=== PATIENT | male | born 1950 | race Caucasian/White ===

== ENCOUNTER 2017-09-05 21:55 | Observation (INO) | payer MEDICARE, OTHER ==
[~2017-09-05] VITALS: Ht 180.3 cm; Wt 73.2 kg
[2017-09-05] MEDS ORDERED: ASPIRIN 81 MG CHEW (CHILDREN'S ASA) PO ONE (22:15)
[2017-09-05 22:16] LABS: BASOPHILS % (AUTO) 0 % (0-10); EOSINOPHILS # (AUTO) 0.1 10^3/uL (0.0-0.3); EOSINOPHILS % (AUTO) 1 % (0-10); HEMATOCRIT 42 % (40-54); HEMOGLOBIN 14.9 G/DL (13.3-17.7); LYMPHOCYTES # (AUTO) 1.4 X 10^3 (1.0-4.0); LYMPHOCYTES % (AUTO) 19 % (12-44); MEAN CORPUSCULAR HEMOGLOBIN 28 PG (25-34); MEAN CORPUSCULAR HGB CONC 36 G/DL (32-36); MEAN CORPUSCULAR VOLUME 78 FL (80-99); MEAN PLATELET VOLUME 9.5 FL (7.4-10.4); MONOCYTES % (AUTO) 13 % (0-12); NEUTROPHILS # (AUTO) 4.9 X 10^3 (1.8-7.8); NEUTROPHILS % (AUTO) 67 % (42-75); PLATELET COUNT 194 10^3/uL (130-400); RED BLOOD COUNT 5.34 10^6/uL (4.35-5.85); RED CELL DISTRIBUTION WIDTH 13.3 % (10.0-14.5); WHITE BLOOD COUNT 7.3 10^3/uL (4.3-11.0)
[2017-09-05 22:29] LABS: PROTHROMBIN TIME PATIENT 13.3 SEC (12.2-14.7)
[2017-09-05 22:35] LABS: ALANINE AMINOTRANSFERASE 15 U/L (0-55); ALBUMIN 4.5 GM/DL (3.2-4.5); ALKALINE PHOSPHATASE 71 U/L (40-136); AMYLASE 127 U/L (25-125); BILIRUBIN,TOTAL 0.6 MG/DL (0.1-1.0); BUN/CREATININE RATIO 13; CALCIUM 9.5 MG/DL (8.5-10.1); CARBON DIOXIDE 26 MMOL/L (21-32); CHLORIDE 108 MMOL/L (98-107); CREATINE KINASE 128 U/L (30-200); CREATININE SERUM 1.09 MG/DL (0.60-1.30); GFR ESTIMATED > 60; GLUCOSE 115 MG/DL (70-105); LIPASE 63 U/L (8-78); POTASSIUM 3.7 MMOL/L (3.6-5.0); SODIUM 143 MMOL/L (135-145)
[2017-09-05 22:41] LABS: CREATINE KINASE MB 1.3 NG/ML (<6.6)
[2017-09-06] VITALS (12 sets, daily range): BP systolic 134–178; BP diastolic 68–89
[2017-09-06] MEDS ORDERED: morphine INJ 4 MG/ML 1 ML (VIAL/SYRINGE) IV PRN (01:30)
[2017-09-06] MEDS ORDERED: meTOprolol 5 MG/5 ML (LOPRESSOR) VIAL IV PRN (01:30)
[2017-09-06] MEDS ORDERED: NITROGLYCERIN 0.4 MG SL TABS BTL 25'S SL PRN (01:30)
--- NOTE | 2017-09-06 04:19 | ED Chest Pain ---
General Chief Complaint: Chest Pain Stated Complaint: CHEST PAIN, HTN Nursing Triage Note: C/O cp while watching grandkids play soccer. States it was a squeezing pain over left breast with sob. lasted apporx 30 min 6/10. 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 NO HISTORY OF SIMILAR PT USED TO SEE DR. AVERY, BUT HAS NOT SEEN A DR IN OVER 30 YEARS Allergies and Home Medications Allergies Coded Allergies: No Known Drug Allergies (Unverified , 09/05/17) Home Medications No Active Prescriptions or Reported Meds Patient Home Medication List Home Medication List Reviewed: Yes Review of Systems Constitutional: no symptoms reported; No dizziness EENTM: No Symptoms Reported Respiratory: See HPI; Denies Cough; Shortness of Air, SOA With Exertion, SOA at Rest; Denies Wheezing Cardiovascular: See HPI, Chest Pain; Denies Edema, Denies Irregular Heart Rate , Denies Lightheadedness, Denies Palpitations, Denies Syncope Gastrointestinal: No Symptoms Reported; Denies Abdominal Pain, Denies Nausea, Denies Vomiting Genitourinary: No Symptoms Reported Musculoskeletal: no symptoms reported; No back pain Skin: no symptoms reported Psychiatric/Neurological: See HPI, Tingling Endocrine: No Symptoms Reported Hematologic/Lymphatic: No Symptoms Reported Past Ialeybn-Zbiywy-Prhsor Hx Patient Social History Alcohol Use: Past History (DRANK WHEN YOUNGER, BUT NOT FOR MANY YEARS) Recreational Drug Use: No Smoking Status: Never a Smoker 2nd Hand Smoke Exposure: No Recent Foreign Travel: No Contact w/Someone Who Travel: No Recent Infectious Disease Expo: No Recent Hopitalizations: No Physical Abuse: No Sexual Abuse: No Mistreated: No Fear: No Immunizations Up To Date Tetanus Booster (TDap): Unknown Seasonal Allergies Seasonal Allergies: No Past Medical History Surgeries: No Respiratory: No Cardiac: No Neurological: No Genitourinary: No Gastrointestinal: No (SPASTIC COLON) Musculoskeletal: No Endocrine: No HEENT: No Cancer: No Psychosocial: No Nursing Suicide Risk Score: 0 Integumentary: No Blood Disorders: No Family Medical History Cervical cancer G8 SISTER Colon cancer 19 FATHER FH: CAD (coronary artery disease) G8 BROTHER FH: uterine cancer G8 SISTER Physical Exam Vital Signs Vital Signs - First Documented 09/05/17 21:55 Pulse 64 Resp 18 B/P (MAP) 189/90 (123) Pulse Ox 96 O2 Delivery Nasal Cannula O2 Flow Rate 2.0 Capillary Refill : Less Than 3 Seconds General Appearance: No Apparent Distress, WD/WN HEENT: PERRL/EOMI Neck: Full Range of Motion, Normal Inspection, Non Tender, Supple; No Carotid Bruit, No JVD Respiratory: Chest Non Tender, Normal Breath Sounds, No Accessory Muscle Use, No Respiratory Distress Cardiovascular: Regular Rate, Rhythm, No Edema, No Gallop, No JVD, No Murmur, Normal Peripheral Pulses Gastrointestinal: Normal Bowel Sounds, No Organomegaly, No Pulsatile Mass, Non Tender, Soft Extremity: Normal Capillary Refill, Normal Inspection, Normal Range of Motion, Non Tender, No Calf Tenderness, No Pedal Edema Neurologic/Psychiatric: Alert, Oriented x3, No Motor/Sensory Deficits, Normal Mood/Affect, motor and generator brush cutter II-XII Norm as Tested Skin: Normal Color, Warm/Dry; No Rash Progress/Results/Core Measures Lab Results Laboratory Tests Test 09/05/17 22:00 Range/Units White Blood Count 7.3 4.3-11.0 10^3/uL Red Blood Count 5.34 4.35-5.85 10^6/uL Hemoglobin 14.9 13.3-17.7 G/DL Hematocrit 42 40-54 % Mean Corpuscular Volume 78 L 80-99 FL Mean Corpuscular Hemoglobin 28 25-34 PG Mean Corpuscular Hemoglobin Concent 36 32-36 G/DL Red Cell Distribution Width 13.3 10.0-14.5 % Platelet Count 194 130-400 10^3/uL Mean Platelet Volume 9.5 7.4-10.4 FL Neutrophils (%) (Auto) 67 42-75 % Lymphocytes (%) (Auto) 19 12-44 % Monocytes (%) (Auto) 13 H 0-12 % Eosinophils (%) (Auto) 1 0-10 % Basophils (%) (Auto) 0 0-10 % Neutrophils # (Auto) 4.9 1.8-7.8 X 10^3 Lymphocytes # (Auto) 1.4 1.0-4.0 X 10^3 Monocytes # (Auto) 1.0 0.0-1.0 X 10^3 Eosinophils # (Auto) 0.1 0.0-0.3 10^3/uL Basophils # (Auto) 0.0 0.0-0.1 10^3/uL Prothrombin Time 13.3 12.2-14.7 SEC INR Comment 1.0 0.8-1.4 Activated Partial Thromboplast Time 32 24-35 SEC Sodium Level 143 135-145 MMOL/L Potassium Level 3.7 3.6-5.0 MMOL/L Chloride Level 108 H 98-107 MMOL/L Carbon Dioxide Level 26 21-32 MMOL/L Anion Gap 9 5-14 MMOL/L Blood Urea Nitrogen 14 7-18 MG/DL Creatinine 1.09 0.60-1.30 MG/DL Estimat Glomerular Filtration Rate > 60 BUN/Creatinine Ratio 13 Glucose Level 115 H 70-105 MG/DL Calcium Level 9.5 8.5-10.1 MG/DL Total Bilirubin 0.6 0.1-1.0 MG/DL Aspartate Amino Transf (AST/SGOT) 20 5-34 U/L Alanine Aminotransferase (ALT/SGPT) 15 0-55 U/L Alkaline Phosphatase 71 40-136 U/L Total Creatine Kinase 128 30-200 U/L Creatine Kinase MB 1.3 <6.6 NG/ML Troponin I < 0.30 <0.30 NG/ML B-Type Natriuretic Peptide 54.2 <100.0 PG/ML Total Protein 7.0 6.4-8.2 GM/DL Albumin 4.5 3.2-4.5 GM/DL Amylase Level 127 H 25-125 U/L Lipase 63 8-78 U/L My Orders Orders - MARILY GOMEZ DO Amylase (09/05/17 22:10) Cbc With Automated Diff (09/05/17 22:10) Comprehensive Metabolic Panel (09/05/17 22:10) Creatine Kinase (09/05/17 22:10) Creatine Kinase Mb (09/05/17 22:10) Lipase (09/05/17 22:10) Partial Thromboplastin Time (09/05/17 22:10) Protime With Inr (09/05/17 22:10) Troponin I (09/05/17 22:10) Chest 1 View, Ap/Pa Only (09/05/17 22:10) O2 (09/05/17 22:10) Ekg Tracing (09/05/17 22:10) Aspirin Chewable Tablet (Baby Aspirin Ch (09/05/17 22:15) BNP (09/05/17 22:10) Monitor-Rhythm Ecg Trace Only (09/05/17 22:10) Medications Given in ED Current Medications Medications Dose Ordered Sig/Kary Route Start Time Stop Time Status Last Admin Dose Admin Aspirin 324 mg ONCE ONCE PO 09/05/17 22:15 09/05/17 22:16 DC 09/05/17 22:16 324 MG Vital Signs/I&O 09/05/17 09/05/17 09/05/17 21:55 21:55 22:30 Pulse 64 Resp 18 B/P (MAP) 189/90 (123) Pulse Ox 96 98 O2 Delivery Nasal Cannula Nasal Cannula O2 Flow Rate 2.0 2.0 2.00 Blood Pressure Mean: 118 Progress Note : Progress Note NO CHEST PAIN OR SYMPTOMS OF ANY KIND DURING ER STAY Initial ECG Impression Date: Sep 05, 2017 Initial ECG Impression Time: 22:04 Initial ECG Rate: 62 Initial ECG Rhythm: Normal Sinus Initial ECG Comparisson: No Previous ECG Available Comments CXR--NO ACUTE PROCESS, PENDING RADIOLOGIST REVIEW Reviewed: Reviewed by Me Departure Communication (Admissions) [id number]--SPOKE WITH DR. FINNEY, ACCEPTS PT FOR ADMIT. WILL CONSULT CARDIOLOGY. Impression Primary Impression: Chest pain Additional Impression: HTN (hypertension) Disposition: 09 ADMITTED INPATIENT Condition: Stable Admissions Decision to Admit Reason: Admit from ER (General) Decision to Admit/Date: Sep 05, 2017 Time/Decision to Admit Time: 23:15 Departure-Patient Inst. Referrals: NO,LOCAL PHYSICIAN (PCP/Family) Primary Care Physician Scripts No Active Prescriptions or Reported Meds MARILY GOMEZ DO Sep 06, 2017 04:19
[2017-09-06 04:21] LABS: BASOPHILS % (AUTO) 0 % (0-10); EOSINOPHILS # (AUTO) 0.1 10^3/uL (0.0-0.3); EOSINOPHILS % (AUTO) 1 % (0-10); HEMATOCRIT 42 % (40-54); HEMOGLOBIN 14.4 G/DL (13.3-17.7); LYMPHOCYTES # (AUTO) 1.4 X 10^3 (1.0-4.0); LYMPHOCYTES % (AUTO) 20 % (12-44); MEAN CORPUSCULAR HEMOGLOBIN 28 PG (25-34); MEAN CORPUSCULAR HGB CONC 34 G/DL (32-36); MEAN CORPUSCULAR VOLUME 81 FL (80-99); MEAN PLATELET VOLUME 10.1 FL (7.4-10.4); MONOCYTES % (AUTO) 13 % (0-12); NEUTROPHILS # (AUTO) 4.6 X 10^3 (1.8-7.8); NEUTROPHILS % (AUTO) 65 % (42-75); PLATELET COUNT 203 10^3/uL (130-400); RED CELL DISTRIBUTION WIDTH 13.4 % (10.0-14.5); WHITE BLOOD COUNT 7.1 10^3/uL (4.3-11.0)
[2017-09-06 05:09] LABS: ALANINE AMINOTRANSFERASE 14 U/L (0-55); ALBUMIN 4.3 GM/DL (3.2-4.5); ALKALINE PHOSPHATASE 65 U/L (40-136); BILIRUBIN,TOTAL 0.7 MG/DL (0.1-1.0); BUN/CREATININE RATIO 13; CALCIUM 9.4 MG/DL (8.5-10.1); CARBON DIOXIDE 26 MMOL/L (21-32); CHLORIDE 109 MMOL/L (98-107); CREATININE SERUM 0.99 MG/DL (0.60-1.30); GFR ESTIMATED > 60; GLUCOSE 94 MG/DL (70-105); POTASSIUM 3.8 MMOL/L (3.6-5.0); SODIUM 144 MMOL/L (135-145); TOTAL PROTEIN 6.6 GM/DL (6.4-8.2)
[2017-09-06 05:17] LABS: MYOGLOBIN SERUM 48.2 NG/ML (10.0-92.0)
--- NOTE | 2017-09-06 07:08 | Diagnostic Imaging Report ---
INDICATION: Chest pain. TECHNIQUE: Single view chest 10:30 PM. CORRELATION STUDY: None FINDINGS: The heart size, mediastinal configuration and pulmonary vascularity are within normal limits. The lungs are clear with no consolidating infiltrate. There is no significant effusion or pneumothorax. IMPRESSION: 1. Negative portable chest. Dictated by: Dictated on workstation # [id number]
[2017-09-06] MEDS ORDERED: ASPIRIN E.C. 325 MG (ECOTRIN) TABLET PO SCH (09:00)
--- NOTE | 2017-09-06 09:19 | Consultation-Cardiology ---
HPI-Cardiology Cardiology Consultation: Date of Consultation 09/06/17 Date of Admission Attending Physician Angeline Matt DO Admitting Physician Leann,Local Physician Consulting Physician Elham ARAGON MD HPI: Time Seen by Provider: 09:19 Chief Complaint: Chest pain This is a 67-year-old patient who presents with chest pain for 30 minutes. Chest pain intensity is 6/10. No radiation. No exacerbating or relieving factors. Mild associated shortness of breath. No other symptoms associated. Substernal. Review of Systems-Cardiology Review of Systems Constitutional: As described under HPI; No As described under HPI, No no symptoms reported, No chills, No fever, No lightheadedness Eyes: No As described under HPI, No no symptoms reported, No blindness, No blurred vision, No contact lenses, No drainage, No decreased acuity, No foreign body sensation, No pain, No vision change Ears/Nose/Throat: No As described under HPI, No no symptoms reported, No chronic hearing loss, No ear discharge, No ear pain, No nasal drainage, No ulcerations Respiratory: No no symptoms reported; As described under HPI; No As described under HPI, No cough, No orthopnea, No shortness of breath, No SOB with excertion Cardiovascular: No no symptoms reported; As described under HPI; No As described under HPI; chest pain; No edema, No irregular heart rate, No lightheadedness, No palpitations Gastrointestinal: No no symptoms reported, No As described under HPI, No abdomen distended, No abdominal pain, No blood streaked bowels, No constipation , No diarrhea, No nausea, No vomiting, No stool coloration changes Genitourinary: No As described under HPI, No burning, No dysuria, No discharge , No frequency, No flank pain, No hematuria, No urgency Skin: No rash, No skin related problems, No ulcerations Psychiatric/Neurological: No anxiety, No depression, No seizure, No focal weakness, No syncope Hematologic: No bleeding abnormalities CUC-Vtjfoe-Ttkkya Hx Patient Social History Alcohol Use: Past History (DRANK WHEN YOUNGER, BUT NOT FOR MANY YEARS) Recreational Drug Use: No Smoking Status: Never a Smoker 2nd Hand Smoke Exposure: No Recent Foreign Travel: No Recent Infectious Disease Expo: No Physical Abuse Screen: No Sexual Abuse: No Immunizations Up To Date Tetanus Booster (TDap): Unknown Past Medical History PMH As described under Assessment. Family Medical History Family History: Cervical cancer G8 SISTER Colon cancer 19 FATHER FH: CAD (coronary artery disease) G8 BROTHER FH: uterine cancer G8 SISTER Allergies and Home Medications Allergies Coded Allergies: No Known Drug Allergies (Unverified , 09/05/17) Home Medications Amlodipine Besylate 5 Mg Tablet, 5 MG PO DAILY Prescribed by: JULIA CALIXTO on 09/06/17 1159 Aspirin 81 Mg Tablet.dr, 81 MG PO DAILY Prescribed by: JULIA CALIXTO on 09/06/17 1202 Calcium Carbonate 300 Mg Tab.chew, 300 MG PO TID PRN for INDIGESTION, (Reported) Multivit-Min/FA/Lycopene/Lut 1 Each Tablet, 1 TAB PO DAILY, (Reported) Patient Home Medication List Home Medication List Reviewed: Yes Physical Exam-Cardiology Physical Exam Vital Signs/I&O 09/06/17 09/06/17 09/06/17 09/06/17 03:00 04:00 04:00 07:00 Temp 97.5 Pulse 53 52 54 B/P (MAP) 178/88 (118) 169/82 (111) Pulse Ox 97 O2 Delivery Room Air 09/06/17 09/06/17 07:58 08:00 Temp 97.6 Pulse 53 Resp 16 B/P (MAP) 156/68 (97) Pulse Ox 94 O2 Delivery Room Air Room Air Capillary Refill : Less Than 3 Seconds Constitutional: appears stated age; No apparent distress; well-developed, well- nourished HEENT: PERRL; No discharge; hearing is well preserved, oral hygience is good; No ulceration, No xanthelasmas are seen Neck: No carotid bruit; carotid pulses are 2 + bilaterally Respiratory: No accessory muscle use, No respiratory distress, No chest tender , No chest expansion is symmetric, No chest is bilaterally symmetric, No lungs clear to percussion, No lungs clear to auscultation, No crackles, No rhonchi, No rales, No stridor, No wheezing, No pleural rub, No other Cardiovascular: No regular rate-rhythm, No irregularly irregular, No extra beats, No parasternal heave is noted, No JVD, No edema, No bradycardia, No tachycardia, No point of maximal impulse, No cardiac thrills are palpable, No S1 and S2, No gallop/S3, No gallop/S4, No diastolic murmur, No systolic murmur, No friction rub, No click, No other Gastrointestinal: No tender, No soft, No round, No distended, No pulsatile mass , No organomegaly, No guarding, No rebound, No tenderness, No hernia, No mass, No audible bowel sounds, No abnormal bowel sounds, No abdominal bruits, No spleenomegaly, No other Rectal: deferred Extremities: No normal range of motion, No non-tender, No normal inspection, No pedal edema, No calf tenderness, No normal capillary refill, No pelvis stable , No calf tenderness, No inflammation, No pedal edema, No slow capillary refill , No swelling, No other, No abrasion, No clubbing, No cyanosis, No ecchymosis, No laceration, No no lower extremity edema bilateral, No significant edema, No tenderness, No wound Neurologic/Psychiatric: alert, normal mood/affect, oriented x 3, power is 5/5 both on sides Skin: No normal color, No warm/dry, No cyanosis, No cool, No diaphoresis, No damp, No ecchymosis, No jaundice, No mottled, No pallor, No rash, No tattoos/ piercings, No ulcerations, No rash on exposed areas, No ulcerations on exposed areas, No other Data Review Labs Laboratory Tests 09/05/17 22:00: White Blood Count 7.3, Red Blood Count 5.34, Hemoglobin 14.9, Hematocrit 42, Mean Corpuscular Volume 78L, Mean Corpuscular Hemoglobin 28, Mean Corpuscular Hemoglobin Concent 36, Red Cell Distribution Width 13.3, Platelet Count 194, Mean Platelet Volume 9.5, Neutrophils (%) (Auto) 67, Lymphocytes (%) (Auto) 19, Monocytes (%) (Auto) 13H, Eosinophils (%) (Auto) 1, Basophils (%) (Auto) 0, Neutrophils # (Auto) 4.9, Lymphocytes # (Auto) 1.4, Monocytes # (Auto) 1.0, Eosinophils # (Auto) 0.1, Basophils # (Auto) 0.0, Prothrombin Time 13.3, INR Comment 1.0, Activated Partial Thromboplast Time 32, Sodium Level 143, Potassium Level 3.7, Chloride Level 108H, Carbon Dioxide Level 26, Anion Gap 9, Blood Urea Nitrogen 14, Creatinine 1.09, Estimat Glomerular Filtration Rate > 60 , BUN/Creatinine Ratio 13, Glucose Level 115H, Calcium Level 9.5, Total Bilirubin 0.6, Aspartate Amino Transf (AST/SGOT) 20, Alanine Aminotransferase ( ALT/SGPT) 15, Alkaline Phosphatase 71, Total Creatine Kinase 128, Creatine Kinase MB 1.3, Troponin I < 0.30, B-Type Natriuretic Peptide 54.2, Total Protein 7.0, Albumin 4.5, Amylase Level 127H, Lipase 63 09/06/17 03:25: White Blood Count 7.1, Red Blood Count 5.20, Hemoglobin 14.4, Hematocrit 42, Mean Corpuscular Volume 81, Mean Corpuscular Hemoglobin 28, Mean Corpuscular Hemoglobin Concent 34, Red Cell Distribution Width 13.4, Platelet Count 203, Mean Platelet Volume 10.1, Neutrophils (%) (Auto) 65, Lymphocytes (%) (Auto) 20 , Monocytes (%) (Auto) 13H, Eosinophils (%) (Auto) 1, Basophils (%) (Auto) 0, Neutrophils # (Auto) 4.6, Lymphocytes # (Auto) 1.4, Monocytes # (Auto) 1.0, Eosinophils # (Auto) 0.1, Basophils # (Auto) 0.0, Sodium Level 144, Potassium Level 3.8, Chloride Level 109H, Carbon Dioxide Level 26, Anion Gap 9, Blood Urea Nitrogen 13, Creatinine 0.99, Estimat Glomerular Filtration Rate > 60, BUN/ Creatinine Ratio 13, Glucose Level 94, Calcium Level 9.4, Total Bilirubin 0.7, Aspartate Amino Transf (AST/SGOT) 21, Alanine Aminotransferase (ALT/SGPT) 14, Alkaline Phosphatase 65, Troponin I < 0.30, Total Protein 6.6, Albumin 4.3, Myoglobin 48.2 09/06/17 10:04: Troponin I < 0.30 ECG Impression ECG Initial ECG Rhythm: Normal Sinus A/P-Cardiology Assessment/Admission Diagnosis Chest pain, hypertension Plan Chest pain: Rule out acute coronary syndrome with serial troponins. EKG negative. Pharmacological nuclear stress test is recommended. Will also get an echocardiogram. Continue aspirin. Hypertension: Continue amlodipine. Thank you for your consultation. Please call me if you have any questions. Sue Aragon MD, FACP, FACC, FSCAI, FHRS, CCDS Interventional Cardiology Cardiac Electrophysiology Vascular Medicine and Endovascular Interventions Clinical Quality Measures AMI/AHF: ASA po Prior to arrival: No DVT/VTE Risk/Contraindication: Risk Factor Score Per Nursin RFS Level Per Nursing on Admit: 2=Moderate Elham ARAGON MD Sep 06, 2017 9:19 am
[2017-09-06] MEDS ORDERED: MULT-1029 PO (09:49)
[2017-09-06] MEDS ORDERED: CALC300T4 PO (09:49)
--- NOTE | 2017-09-06 11:53 | Short Stay Summary-Hospitalist ---
History of Present Illness HPI/Chief Complaint Pt is a 67yoCM with no known past medical history who presented to the ER with CC of chest pain. He was standing at his [employer] soccer game and not exerting himself when he developed chest tightness over his heart. He has never had similar symptoms so he he decided to seek evaluation in the ER. He denied any radiation of pain but it was all left sided. He denies any pain or SOB today. He otherwise has no complaints. He is a nonsmoker. He was mowing the other day and thought he pulled a muscle from that though. Source: patient Exam Limitations: no limitations Date Seen 09/06/17 Time Seen by Provider: 08:15 Attending Physician Angeline Matt DO PCP No,Local Physician Referring Physician Date of Admission Sep 05, 2017 at 11:15 pm Home Medications & Allergies Home Medications Reviewed patient Home Medication Reconciliation performed by pharmacy medication reconciliations filter changing technician and/or nursing. Patients Allergies have been reviewed. Allergies Allergies Coded Allergies No Known Drug Allergies (Unverified09/05/17) Past Pviuagd-Tesbrh-Nemcor Hx Past Med/Social Hx: Reviewed Nursing Past Med/Soc Hx Patient Social History Marrital Status: Employed/Student: employed Alcohol Use: Past History (DRANK WHEN YOUNGER, BUT NOT FOR MANY YEARS) Recreational Drug Use: No Smoking Status: Never a Smoker 2nd Hand Smoke Exposure: No Physical Abuse Screen: No Sexual Abuse: No Recent Foreign Travel: No Contact w/other who traveled: No Recent Hopitalizations: No Recent Infectious Disease Expo: No Immunizations Up To Date Tetanus Booster (TDap): Unknown Seasonal Allergies Seasonal Allergies: No Past Medical History History of Blood Disorders: No Family History Cervical cancer G8 SISTER Colon cancer 19 FATHER FH: CAD (coronary artery disease) G8 BROTHER FH: uterine cancer G8 SISTER Cancer (dad with colon cancer, sister with cervical and ovarian cancer) Review of Systems Constitutional: No chills, No fever EENTM: No blurred vision, No double vision, No nose congestion, No throat pain Respiratory: No cough, No dyspnea on exertion; short of breath Cardiovascular: chest pain; No edema, No Hx of Intervention, No palpitations Gastrointestinal: No abdominal pain, No constipation, No diarrhea, No nausea, No vomiting Genitourinary: No dysuria, No frequency Musculoskeletal: No joint pain, No muscle pain Skin: No lesions, No rash Psychiatric/Neurological: Denies Headache, Denies Numbness, Denies Tingling All Other Systems Reviewed Negative Unless Noted: Yes (Negative excepted noted.) Physical Exam Physical Exam Vital Signs Vital Signs - First Documented 09/05/17 21:55 Pulse 64 Resp 18 B/P (MAP) 189/90 (123) Pulse Ox 96 O2 Delivery Nasal Cannula O2 Flow Rate 2.0 Capillary Refill : Less Than 3 Seconds General Appearance: No Apparent Distress, WD/WN HEENT: PERRL/EOMI, Moist Mucous Membranes; No Scleral Icterus (L), No Scleral Icterus (R) Neck: Non Tender, Supple; No JVD, No Thyromegaly Respiratory: Lungs Clear, No Respiratory Distress Cardiovascular: Regular Rate, Rhythm, No Murmur, Normal Peripheral Pulses Gastrointestinal: Normal Bowel Sounds, Non Tender, Soft Extremity: Normal Capillary Refill, No Calf Tenderness, No Pedal Edema Neurologic/Psychiatric: Alert, Oriented x3, No Motor/Sensory Deficits, Normal Mood/Affect Skin: Normal Color, Warm/Dry Results Results/Procedures Labs Laboratory Tests 09/05/17 22:00 09/06/17 03:25 Patient resulted labs reviewed. Imaging: Reviewed Imaging Films, Reviewed Imaging Report Short Stay Diagnosis Discharge Diagnosis-Short Stay Admission Diagnosis Chest pain Final Discharge Diagnosis Chest pain Conclusion Plan See problems Diagnosis/Problems Diagnosis/Problems (1) Chest pain Status: Acute Assessment & Plan: ASA given in ER Cardiology consulted, appreciate recs Stress test done and deemed low risk Qualifiers: Qualified Codes: R07.9 - Chest pain, unspecified (2) HTN (hypertension) Status: Acute Assessment & Plan: Will start on Amlodipine at discharge and is to follow up with to establish care with PCP Number given for Dr Matt Qualifiers: Qualified Codes: I10 - Essential (primary) hypertension Clinical Quality Measures AMI/AHF: ASA po Prior to arrival: No DVT/VTE Risk/Contraindication: Risk Factor Score Per Nursin RFS Level Per Nursing on Admit: 2=Moderate JULIA CALIXTO MD Sep 06, 2017 11:53
[2017-09-06] MEDS ORDERED: AMLO5TAB2 PO (11:59)
[2017-09-06] MEDS ORDERED: ASPI-586 PO (12:02)
[2017-09-06] MEDS ORDERED: CATHETER FLUSH 10 ML SYR IV PRN (14:15)
[2017-09-06] MEDS ORDERED: REGADENOSON 0.4 MG/5 ML SYR (LEXISCAN) IV ONE ×2 (14:28→15:00)
--- NOTE | 2017-09-06 16:55 | Cardiology Stress Test Report ---
Stress Test Report Type of NM Stress Test: Test Type: LEXISCAN 0.4MG/5ML Date of Procedure/Referring: Date of Procedure: Sep 06, 2017 PCP Angeline Matt DO Admitting Physician No,Local Physician Indications: Chest pain Baseline Heart Rate: 57 Baseline Blood Pressure: Blood Pressure Systolic: 158 Blood Pressure Diastolic: 77 Baseline EKG: Baseline EKG: sinus bradycardia Summary: The patient was brought to the stress level off informed consent was taken. Stress test was performed according to the Lexiscan protocol. 0.4 mg of IV Lexiscan was given. Low-grade exercise was performed. Baseline EKG showed sinus bradycardia at 57 BPM. Blood pressure 158/77 mmHg. Maximum heart rate 108 BPM and blood pressure 160/86 mmHg. Patient did not have any chest pain, EKG changes or arrhythmias during the stress test. 10.98 mCi of Myoview was given for rest imaging and 31.0 mCi of Myoview were given for stress imaging. Transient ischemic dilatation score was 1.01. Ejection fraction of 55 percent. Normal wall motion. Normal perfusion during rest and stress imaging. Conclusion: Pharmacological stress test negative for ischemia. normal LV function with no wall motion abnormalities. Normal myocardial perfusion during stress and rest. Elham MAYEN MD Sep 06, 2017 4:55 pm
== END 2017-09-06 12:01 | disposition home or self-care (01) ==
LOC: ER 21:58 → ICU 23:15
PROVIDERS: ADMIT Internal Medicine; ATTEND Internal Medicine
DX: R07.9 Chest pain, unspecified (principal); I10 Essential (primary) hypertension
CPT/HCPCS: 36415; 71045; 78452; 80053; 82150; 82550; 82553; 83690; 83874; 83880; 84484; 85025; 85610; 85730; 93005; 93017; 93041; 93306; 99211

== ENCOUNTER 2017-09-24 05:46 | Outpatient (CLI) | payer MEDICARE, OTHER ==
[~2017-09-24] VITALS: Ht 180.3 cm; Wt 73.2 kg
[2017-09-24] MEDS ORDERED: ASPI-586 PO (12:58)
[2017-09-24] MEDS ORDERED: AMLO5TAB2 PO (12:58)
== END 2017-09-24 13:02 ==
LOC: PREOP 05:46
PROVIDERS: ATTEND Surgery
DX: Z01.818 Encounter for other preprocedural examination (principal); Z12.11 Encounter for screening for malignant neoplasm of colon; K21.9 Gastro-esophageal reflux disease without esophagitis

== ENCOUNTER → 2017-09-24 | Outpatient (CLI) | payer MEDICARE, OTHER ==
[~2017-09-24] MED LIST: AMLO5TAB2 PO; ASPI-586 PO; CALC300T4 PO; MULT-1029 PO
[2017-09-24 08:21] LABS: CHOLESTEROL 171 MG/DL (< 200); HDL CHOLESTEROL 43 MG/DL (40-60); TRIGLYCERIDES 101 MG/DL (<150); VLDL CHOLESTEROL 20 MG/DL (5-40)
== END ==
LOC: LAB 07:50
PROVIDERS: ATTEND Internal Medicine
DX: R07.9 Chest pain, unspecified (principal)
CPT/HCPCS: 36415; 80061

== ENCOUNTER 2017-10-01 09:03 | Day surgery (SDC) | payer MEDICARE, OTHER ==
[~2017-10-01] VITALS: Ht 180.3 cm; Wt 73.2 kg
[2017-10-01 09:30] VITALS: BP 138/83
[2017-10-01] MEDS ORDERED: LACTATED RINGERS 1,000 ML IV PRN (09:30)
--- NOTE | 2017-10-01 09:40 | Progress Note-Pre Operative ---
Pre-Operative Progress Note H&P Reviewed The H&P was reviewed, patient examined and no changes noted. Date Seen by Provider: October 01, 2017 Time Seen by Provider: 09:40 Date H&P Reviewed: October 01, 2017 Time H&P Reviewed: 09:40 Pre-Operative Diagnosis: screening colonoscopy, GERD SHEILA PATEL DO October 01, 2017 09:40
[2017-10-01] MEDS ORDERED: LACTATED RINGERS 1,000 ML IV ONE (09:41)
[2017-10-01] MEDS ORDERED: proPOfol 200 MG/20 ML (DIPRIVAN) VIAL IV ONE ×2 (10:55→12:00)
[2017-10-01] MEDS ORDERED: PROPOFOL INJECTION 50 ML IV ONE (10:55)
[2017-10-01] MEDS ORDERED: HURRICAINE EXT TUBE (BENZOCAINE) ONE (11:19)
[2017-10-01] MEDS ORDERED: HURRICAINE EXT TUBE (BENZOCAINE) XX PRN (11:30)
[2017-10-01 12:45] VITALS: BP 151/79
[2017-10-01 13:20] VITALS: BP 142/87
--- NOTE | 2017-10-01 13:22 | Discharge Inst-Simple/Standard ---
Discharge Inst-Standard Discharge Medications New, Converted or Re-Newed RX: Call to Patients Pharmacy Patient Instructions/Follow Up Plan of Care/Instructions/FU: Jaden 1-2 weeks Activity as Tolerated: Yes Discharge Diet: Regular Diet SHEILA PATEL DO October 01, 2017 13:22
--- NOTE | 2017-10-01 13:22 | Progress Note-Post Operative ---
Post-Operative Progess Note Surgeon (s)/Photovoltaic Power Systems Engineer (s) Surgeon SHEILA PATEL DO Photovoltaic Power Systems Engineer: na Pre-Operative Diagnosis screening colonoscopy, GERD Post-Operative Diagnosis gastritis, cecal polyp x 2, transverse colon polyp x 2 descending colon polyp Procedure & Operative Findings Date of Procedure 10/01/17 Procedure Performed/Findings egd c biopsy, colonoscopy c hot bx polypectomy x 3 and snare polypectomy transverse colon polyp and snare polypectomy descending colon polyp with fransisca inking distal. Anesthesia Type per fuel operator Estimated Blood Loss Estimated blood loss (mL): minimal Specimens/Packing Specimens Removed antrum, colon polyps SHEILA PATEL DO October 01, 2017 13:21
[2017-10-01 13:25] VITALS: BP 142/87
--- NOTE | 2017-10-01 13:52 | Anesthesia-General Post-Op ---
MAC Patient Condition Mental Status/LOC: Same as Preop Cardiovascular: Satisfactory Nausea/Vomiting: Absent Respiratory: Satisfactory Pain: Controlled Complications: Absent Post Op Complications Complications None Follow Up Care/Instructions Patient Instructions None needed. Anesthesiology Discharge Order Discharge Order Patient is doing well, no complaints, stable vital signs, no apparent adverse anesthesia problems. No complications reported per nursing. DANI WARD CRNA October 01, 2017 13:52
--- NOTE | 2017-10-01 23:05 | OPERATIVE REPORT ---
DATE OF SERVICE: 10/01/2017 PREOPERATIVE DIAGNOSES: Screening colonoscopy, gastroesophageal reflux disease. POSTOPERATIVE DIAGNOSES: Gastritis, cecal polyp x2, transverse colon polyp x2, descending colon polyp. PROCEDURE: EGD with biopsy, colonoscopy with hot biopsy polypectomy x3 and snare polypectomy transverse colon and snare polypectomy descending colon polyp with Shantel inking distally. SURGEON: Sheila Stanley DO. ANESTHESIA: Per DIGITAL ADVERTISING ANALYST. ESTIMATED BLOOD LOSS: Minimal. COMPLICATIONS: None. INDICATIONS: The patient is a 67-year-old male in need of screening colonoscopy and he has been having gastroesophageal reflux disease. He understands risks and benefits of procedure and wished to proceed with procedure. Consent was signed on the chart. DESCRIPTION OF PROCEDURE: The patient was taken to the endoscopy suite, placed in left lateral recumbent position. Timeout was performed. Scope was inserted in the mouth, down the esophagus, stomach into the duodenum without difficulty. There were no polyps, masses or ulcerations within the duodenum. Scope was slowly retracted back to the stomach where it was further insufflated. There are erythematous changes present, may be a small healing ulcer present in the antrum. Biopsy of the antrum was obtained. Scope was retroflexed noting no other pathology, no hiatal hernia. Scope was returned to its normal position, slowly withdrawn to the distal esophagus which had normal appearance. No polyps, masses or ulcerations. The scope was slowly retracted back until completely removed. The patient then had a colonoscopy performed. Digital rectal exam was performed. There were no palpable polyps, masses or ulcerations. The scope was inserted in the rectum and advanced all the way to the cecum with minimal difficulty. Prep was adequate. Scope was slowly retracted back to the cecum. There were two small polyps, which hot biopsy polypectomy was performed on these. Scope was then slowly retracted back and there were no other polyps, masses or ulcerations within the ascending colon. Within the transverse colon proximal portion, a small polyp was present, which hot biopsy polypectomy was performed. As the scope was continued to be slowly retracted into the transverse colon, the more distal portion, there was a pedunculated polyp, which snare polypectomy was performed. Specimen was obtained. Scope was continued to be slowly retracted back and once in the descending colon, a larger polyp, and also pedunculated slightly, was encountered. Snare polypectomy was performed, but the snare and cut through a portion of this causing a little bit of bleeding. Using the snare, this was able to be controlled. The polyp was removed. The area was irrigated with copious amounts of irrigation and hemostasis had been achieved. Just distal to this area, total of 3 mL of Shantel ink was injected just distal to this larger polyp for reexamination later. Scope was then slowly retracted back through the sigmoid colon. There is a small amount of diverticulosis present. Once in the rectum, scope was also retroflexed noting no other pathology. Scope was returned to its normal position, slowly withdrawn until completely removed. The patient tolerated the procedure well without any complications and taken to recovery room in stable condition. RECOMMENDATIONS: The patient will be started on Protonix 40 mg daily and see how he is doing in a couple weeks. The patient would recommend repeat colonoscopy in about 6 months to reevaluate the area due to the number of polyps and also a larger polyp in the descending colon to make sure that it was completely removed. The patient again will have followup appointment in approximately 2 weeks. Job ID: [id number] DocumentID: [id number] Dictated Date: 10/01/2017 13:28:39 Mandrel Cleaner Date: 10/01/2017 23:04:43 Dictated By: SHEILA STANLEY DO
== END 2017-10-01 13:30 | disposition home or self-care (01) ==
LOC: ENDO 09:03
PROVIDERS: ATTEND Surgery
DX: Z12.11 Encounter for screening for malignant neoplasm of colon (principal); D12.0 Benign neoplasm of cecum; D12.3 Benign neoplasm of transverse colon; D12.4 Benign neoplasm of descending colon; K29.70 Gastritis, unspecified, without bleeding; I10 Essential (primary) hypertension; Z79.82 Long term (current) use of aspirin; Z79.899 Other long term (current) drug therapy
CPT/HCPCS: 88305

== ENCOUNTER → 2018-01-02 | Outpatient (CLI) | payer MEDICARE, OTHER ==
[2018-01-02 08:39] LABS: ALANINE AMINOTRANSFERASE 16 U/L (0-55); ALBUMIN 4.2 GM/DL (3.2-4.5); ALKALINE PHOSPHATASE 69 U/L (40-136); BILIRUBIN,TOTAL 0.9 MG/DL (0.1-1.0); BUN/CREATININE RATIO 13; CALCIUM 9.4 MG/DL (8.5-10.1); CARBON DIOXIDE 27 MMOL/L (21-32); CHLORIDE 108 MMOL/L (98-107); CHOLESTEROL 189 MG/DL (< 200); CREATININE SERUM 1.04 MG/DL (0.60-1.30); GFR ESTIMATED > 60; GLUCOSE 97 MG/DL (70-105); HDL CHOLESTEROL 40 MG/DL (40-60); POTASSIUM 4.1 MMOL/L (3.6-5.0); SODIUM 141 MMOL/L (135-145); TOTAL PROTEIN 6.7 GM/DL (6.4-8.2); TRIGLYCERIDES 121 MG/DL (<150); VLDL CHOLESTEROL 24 MG/DL (5-40)
== END ==
LOC: LAB 08:05
PROVIDERS: ATTEND Internal Medicine Interventional Cardiology
DX: E78.5 Hyperlipidemia, unspecified (principal); I10 Essential (primary) hypertension
CPT/HCPCS: 36415; 80053; 80061

== ENCOUNTER 2018-04-15 05:39 | Outpatient (CLI) | payer MEDICARE, OTHER ==
[~2018-04-15] VITALS: Ht 180.3 cm; Wt 73.2 kg
[~2018-04-15 05:39] MED LIST changes: -AMLO5TAB2 PO; +AMLO5TAB7 PO
[2018-04-17] MEDS ORDERED: RANI150T46 PO (14:20)
== END 2018-04-17 14:22 | disposition home or self-care (01) ==
LOC: PREOP 05:39
PROVIDERS: ATTEND Surgery
DX: Z01.818 Encounter for other preprocedural examination (principal)

== ENCOUNTER 2018-04-22 09:09 | Day surgery (SDC) | payer MEDICARE, OTHER ==
[~2018-04-22] VITALS: Ht 180.3 cm; Wt 73.2 kg
[~2018-04-22 09:09] MED LIST changes: +RANI150T46 PO
[2018-04-22] MEDS ORDERED: LACTATED RINGERS 1,000 ML IV STA (09:22)
[2018-04-22] MEDS ORDERED: PROPOFOL INJECTION 50 ML IV ONE (09:25)
[2018-04-22] MEDS ORDERED: MIDAZOLAM 2 MG/2 ML (VERSED) VIAL ONE (09:26)
[2018-04-22 09:49] VITALS: BP 140/83
--- NOTE | 2018-04-22 10:04 | Progress Note-Pre Operative ---
Pre-Operative Progress Note H&P Reviewed The H&P was reviewed, patient examined and no changes noted. Date Seen by Provider: Apr 22, 2018 Time Seen by Provider: 10:04 Date H&P Reviewed: Apr 22, 2018 Time H&P Reviewed: 10:04 Pre-Operative Diagnosis: hx polyps SHEILA PATEL DO Apr 22, 2018 10:04
--- NOTE | 2018-04-22 10:35 | Progress Note-Post Operative ---
Post-Operative Progess Note Surgeon (s)/Rack Cleaner (s) Surgeon SHEILA PATEL DO Rack Cleaner: na Pre-Operative Diagnosis hx polyps Post-Operative Diagnosis diverticulosis Procedure & Operative Findings Date of Procedure 04/22/18 Procedure Performed/Findings colonoscopy Anesthesia Type per mixer operator hot metal Estimated Blood Loss Estimated blood loss (mL): none Specimens/Packing Specimens Removed na SHEILA PATEL DO Apr 22, 2018 10:35
--- NOTE | 2018-04-22 10:37 | Discharge Inst-Simple/Standard ---
Discharge Inst-Standard Patient Instructions/Follow Up Plan of Care/Instructions/FU: 5 years Jaden any issues before that be seen at that time. Activity as Tolerated: Yes Discharge Diet: Regular Diet (high fiber) SHEILA PATEL DO Apr 22, 2018 10:37
[2018-04-22 10:40] VITALS: BP 126/72
[2018-04-22 11:00] VITALS: BP 120/82
[2018-04-22 11:03] VITALS: BP 120/82
--- NOTE | 2018-04-22 13:45 | Anesthesia-General Post-Op ---
MAC Patient Condition Mental Status/LOC: Same as Preop Cardiovascular: Satisfactory Nausea/Vomiting: Absent Respiratory: Satisfactory Pain: Controlled Complications: Absent Post Op Complications Complications None Follow Up Care/Instructions Patient Instructions None needed. Anesthesiology Discharge Order Discharge Order Patient is doing well, no complaints, stable vital signs, no apparent adverse anesthesia problems. No complications reported per nursing. MARIBETH GOULD CRNA Apr 22, 2018 13:45
--- NOTE | 2018-04-22 15:03 | OPERATIVE REPORT ---
DATE OF SERVICE: 04/22/2018 PREOPERATIVE DIAGNOSIS: History of polyps. POSTOPERATIVE DIAGNOSIS: Diverticulosis. PROCEDURE: Colonoscopy. SURGEON: Sheila Stanley DO ANESTHESIA: Per DICER MACHINE OPERATOR. ESTIMATED BLOOD LOSS: None. COMPLICATIONS: None. INDICATIONS: The patient is a 68-year-old male with history of colon polyps. He understands risks and benefits of procedure and wishes to proceed with procedure. Consent was signed in the chart. PROCEDURE IN DETAIL: The patient was taken to the endoscopy suite, placed in left lateral recumbent position. Timeout was performed. Digital rectal exam was performed. There were no palpable polyps, masses or ulcerations. Scope was inserted in the rectum and advanced all the way to the cecum with minimal difficulty. Prep was adequate. Scope was then slowly retracted back. There were no polyps, masses or ulcerations in the cecum, ascending, transverse, descending and sigmoid colon. A minimal amount of diverticulosis was present in the sigmoid colon. Once in the rectum, scope was retroflexed noting no other pathology. Scope was returned to its normal position, slowly withdrawn until completely removed. The patient tolerated the procedure well without any complications. He was taken to recovery room in stable condition. RECOMMENDATIONS: The patient will need repeat colonoscopy in 5 years. If he has any problems prior to that, he should be reevaluated at that time. Job ID: [id number] DocumentID: [id number] Dictated Date: 04/22/2018 10:40:48 Entry Level Date: 04/22/2018 15:03:09 Dictated By: SHEILA STANLEY DO
== END 2018-04-22 11:16 | disposition home or self-care (01) ==
LOC: ENDO 09:09
PROVIDERS: ATTEND Surgery
DX: Z09 Encounter for follow-up examination after completed treatment for conditions other than malignant neoplasm (principal); K57.30 Diverticulosis of large intestine without perforation or abscess without bleeding; Z86.010 Personal history of colon polyps; K21.9 Gastro-esophageal reflux disease without esophagitis; I10 Essential (primary) hypertension; Z79.82 Long term (current) use of aspirin; Z79.899 Other long term (current) drug therapy

== ENCOUNTER → 2018-10-08 | Outpatient (CLI) | payer MEDICARE, OTHER ==
[~2018-10-08] MED LIST changes: -AMLO5TAB7 PO; +AMLO5TAB9 PO
[2018-10-08 08:30] LABS: BASOPHILS % (AUTO) 1 % (0-10); EOSINOPHILS # (AUTO) 0.2 10^3/uL (0.0-0.3); EOSINOPHILS % (AUTO) 3 % (0-10); HEMATOCRIT 44 % (40-54); HEMOGLOBIN 15.2 G/DL (13.3-17.7); LYMPHOCYTES # (AUTO) 1.4 X 10^3 (1.0-4.0); LYMPHOCYTES % (AUTO) 22 % (12-44); MEAN CORPUSCULAR HEMOGLOBIN 28 PG (25-34); MEAN CORPUSCULAR HGB CONC 34 G/DL (32-36); MEAN CORPUSCULAR VOLUME 80 FL (80-99); MEAN PLATELET VOLUME 9.9 FL (7.4-10.4); MONOCYTES # (AUTO) 0.7 X 10^3 (0.0-1.0); MONOCYTES % (AUTO) 11 % (0-12); NEUTROPHILS # (AUTO) 4.1 X 10^3 (1.8-7.8); NEUTROPHILS % (AUTO) 64 % (42-75); PLATELET COUNT 197 10^3/uL (130-400); RED CELL DISTRIBUTION WIDTH 13.4 % (10.0-14.5); WHITE BLOOD COUNT 6.3 10^3/uL (4.3-11.0)
[2018-10-08 08:52] LABS: ALANINE AMINOTRANSFERASE 17 U/L (0-55); ALBUMIN 4.3 GM/DL (3.2-4.5); ALKALINE PHOSPHATASE 74 U/L (40-136); BILIRUBIN,TOTAL 0.9 MG/DL (0.1-1.0); BUN/CREATININE RATIO 12; CALCIUM 9.4 MG/DL (8.5-10.1); CARBON DIOXIDE 23 MMOL/L (21-32); CHLORIDE 109 MMOL/L (98-107); CHOLESTEROL 196 MG/DL (< 200); CREATININE SERUM 1.07 MG/DL (0.60-1.30); GFR ESTIMATED > 60; GLUCOSE 97 MG/DL (70-105); HDL CHOLESTEROL 39 MG/DL (40-60); POTASSIUM 4.1 MMOL/L (3.6-5.0); SODIUM 144 MMOL/L (135-145); TRIGLYCERIDES 159 MG/DL (<150); VLDL CHOLESTEROL 32 MG/DL (5-40)
== END ==
LOC: LAB 08:04
PROVIDERS: ATTEND Internal Medicine
DX: R07.9 Chest pain, unspecified (principal); E78.2 Mixed hyperlipidemia; K58.0 Irritable bowel syndrome with diarrhea; R73.01 Impaired fasting glucose; R71.8 Other abnormality of red blood cells
CPT/HCPCS: 36415; 80053; 80061; 82728; 83036; 83540; 84443; 85025

== ENCOUNTER 2022-11-28 05:36 | Outpatient (CLI) | payer MEDICARE, OTHER ==
[~2022-11-28] VITALS: Ht 180 cm; Wt 78.0 kg
[~2022-11-28 05:36] MED LIST changes: +AMLO-250 PO; -AMLO5TAB9 PO; +RANI-613 PO; -RANI150T46 PO
[2022-12-03] MEDS ORDERED: ASPI-999 PO (12:51)
== END 2022-12-03 13:08 | disposition home or self-care (01) ==
LOC: PREOP 05:36
PROVIDERS: ATTEND Surgery
DX: Z01.818 Encounter for other preprocedural examination (principal)